=== PATIENT | female | born 1995 | race Caucasian/White ===

== ENCOUNTER 2021-03-29 11:20 | Outpatient (REF) | payer OTHER, SELFPAY ==
[2021-03-29 12:37] LABS: MANUAL DIFF FLAG NO
[2021-03-29 12:39] LABS: Basophils Percent Auto 0.4 % (0-2); Eosinophils Absolute Auto 0.1 X10*3/uL (0.0-0.4); Eosinophils Percent Auto 1.1 % (0-4); Hematocrit 40.2 % (37-47); Hemoglobin 14.1 g/dl (12.0-16.0); Imm Gran Abs Auto 0.04 X10*3/uL (0.00-0.03); Imm Gran Pct Auto 0.4 % (0.0-0.4); Lymphocytes Absolute Auto 1.1 X10*3/uL (1.2-4.9); Lymphocytes Percent Auto 11.3 % (20-40); Mean Corpuscular HGB Conc 35.1 g/dl (31.0-35.0); Mean Corpuscular Hemoglobin 32.1 pg (27.0-33.0); Mean Corpuscular Volume 91.6 fL (80-98); Mean Platelet Volume 10.8 fL (9.4-12.3); Monocytes Absolute Auto 0.5 X10*3/uL (0.1-1.2); Monocytes Percent Auto 4.9 % (2-11); Neutrophils Absolute Auto 8.2 X10*3/uL (2.0-8.3); Neutrophils Percent Auto 81.9 % (45-73); Platelet Count 382 X10*3/uL (160-400); Red Blood Count 4.39 X10*6/uL (4.20-5.50); Red Cell Distribution Width 11.3 % (11.0-16.0)
[2021-03-29 13:07] LABS: Alanine Aminotransferase 19 U/L (0-31); Albumin Level 4.7 g/dL (3.5-5.0); Alkaline Phosphatase 66 U/L (39-117); Anion Gap 13 (12-20); Aspartate Amino Transferase 18 U/L (5-31); Bilirubin Total 0.5 mg/dL (0.0-1.0); Blood Urea Nitrogen 5 mg/dL (9-16); Calcium 10.2 mg/dL (8.4-10.2); Carbon Dioxide 26 mmol/L (22-29); Chloride 104 mmol/L (96-108); Estimated Glomerular Filt Rate > 60; Glucose Fasting 96 mg/dL (60-99); Iron 172 mcg/dL (30-160); Percent Iron Saturation 56 % (15-50); Potassium 4.3 mmol/L (3.3-5.1); Sodium 139 mmol/L (135-145); Total Iron Binding Capacity 307 mcg/dL (228-428); Total Protein 7.3 g/dL (6.5-8.0); Unsaturated Iron Binding 135 ug/dL
[2021-03-29 13:31] LABS: Thyroid Stimulating Hormone 1.26 uIU/mL (0.32-4.0); Vitamin D 25-OH Total 16.5 ng/mL (>30)
[2021-03-29 14:00] LABS: Vitamin B12 391 pg/mL (200-900)
[2021-03-29 14:20] LABS: Ferritin 31 ng/mL (10-122)
== END 2021-03-29 11:21 | disposition home or self-care (01) ==
LOC: HO.MANLDS 11:20
PROVIDERS: PCP Internal Medicine; Visit Provider Physician Assistant
DX: R53.83 Other fatigue (principal); Z83.49 Family history of other endocrine, nutritional and metabolic diseases
CPT/HCPCS: 36415; 80053; 82306; 82607; 82728; 82746; 83540; 84439; 84443; 85025

== ENCOUNTER 2021-06-27 11:02 | Outpatient (REF) | payer OTHER, SELFPAY ==
[2021-06-27 12:41] LABS: MANUAL DIFF FLAG NO
[2021-06-27 12:52] LABS: Basophils Percent Auto 0.5 % (0-2); Eosinophils Absolute Auto 0.1 X10*3/uL (0.0-0.4); Eosinophils Percent Auto 1.7 % (0-4); Hematocrit 41.1 % (37-47); Hemoglobin 14.1 g/dl (12.0-16.0); Imm Gran Abs Auto 0.02 X10*3/uL (0.00-0.03); Imm Gran Pct Auto 0.3 % (0.0-0.4); Lymphocytes Absolute Auto 1.6 X10*3/uL (1.2-4.9); Lymphocytes Percent Auto 27.1 % (20-40); Mean Corpuscular HGB Conc 34.3 g/dl (31.0-35.0); Mean Corpuscular Hemoglobin 31.4 pg (27.0-33.0); Mean Corpuscular Volume 91.5 fL (80-98); Mean Platelet Volume 10.7 fL (9.4-12.3); Monocytes Absolute Auto 0.5 X10*3/uL (0.1-1.2); Monocytes Percent Auto 8.8 % (2-11); Neutrophils Absolute Auto 3.6 X10*3/uL (2.0-8.3); Neutrophils Percent Auto 61.6 % (45-73); Platelet Count 425 X10*3/uL (160-400); Red Blood Count 4.49 X10*6/uL (4.20-5.50); Red Cell Distribution Width 11.2 % (11.0-16.0); White Blood Count 5.8 X10*3/uL (4.8-10.8)
[2021-06-27 13:04] LABS: Alanine Aminotransferase 8 U/L (0-31); Albumin Level 4.9 g/dL (3.5-5.0); Alkaline Phosphatase 57 U/L (39-117); Amylase 58 U/L (28-100); Anion Gap 12 (12-20); Aspartate Amino Transferase 14 U/L (5-31); Bilirubin Total 0.8 mg/dL (0.0-1.0); Blood Urea Nitrogen 8 mg/dL (9-16); C Reactive Protein 0.05 mg/dL (< or = 0.50); Calcium 10.1 mg/dL (8.4-10.2); Carbon Dioxide 27 mmol/L (22-29); Chloride 105 mmol/L (96-108); Estimated Glomerular Filt Rate > 60; Glucose Random 88 mg/dL (60-115); Lipase 24 U/L (8-78); Potassium 4.2 mmol/L (3.3-5.1); Sodium 140 mmol/L (135-145); Total Protein 7.6 g/dL (6.5-8.0)
[2021-06-27 13:54] LABS: Erythrocyte Sedimentation Rate 4 MM/HR (0-20)
[2021-07-01 02:01] LABS: Calprotectin, Fecal 450 mcg/g
== END 2021-06-27 11:03 | disposition home or self-care (01) ==
LOC: HO.MANLDS 11:02
PROVIDERS: PCP Internal Medicine; Visit Provider Physician Assistant
DX: R10.0 Acute abdomen (principal)
CPT/HCPCS: 36415; 80053; 82150; 83690; 83993; 85025; 85652; 86140; 87045; 87046